=== PATIENT | female | born 1990 | race Caucasian/White ===

== ENCOUNTER 2017-09-11 20:55 | Emergency (ER) | payer BC ==
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
--- NOTE | 2017-09-12 13:11 | CT ---
Head CT Technique: Multiple axial sections through the brain were obtained. Intravenous contrast was not utilized. Comparison: No previous intracranial imaging. Findings: Ventricles along with basal cisterns and sulci over the convexities are within normal limits for the patient's age. No abnormal parenchymal densities are seen. No evidence of intracranial hemorrhage. No midline shift or mass effect is seen. Bone window settings were reviewed which show no acute calvarial abnormality. Visualized sinuses are clear. Impression: 1. Nothing acute is seen on noncontrast head CT study. Diagnostic code #1 Agree with preliminary report issued by [facility] ([facility] preliminary report dictated on 09/11/17, 10:43 PM Central Time)
== END 2017-09-11 23:01 | disposition home or self-care (01) ==
LOC: JD.ED 20:55
DX: R20.2 Paresthesia of skin (principal)
CPT/HCPCS: 36415; 70450; 70450-26; 80053; 85025; 99283; 99284-25